=== PATIENT | male | born 1995 | race Caucasian/White ===

== ENCOUNTER 2017-03-06 18:10 | Emergency (ER) | payer BC, OTHER ==
[2017-03-06 18:23] VITALS: BP 155/99
--- NOTE | 2017-03-06 19:11 | EDM.PDOC ---
ED HPI GENERAL MEDICAL PROBLEM - General Chief Complaint: Lower Extremity Injury/Pain Stated Complaint: L ANKLE INJURY Time Seen by Provider: 03/06/17 19:00 Source of Information: Reports: Patient History Limitations: Reports: No Limitations - History of Present Illness INITIAL COMMENTS - FREE TEXT/NARRATIVE: 21-year-old male presents for evaluation treatment of injury to the left ankle. Injury occurred on Monday, March 01. Patient reports that he was running up a steep wall. He states he did not make it all the way and fell and inverted left ankle. He reports pain, swelling and bruising to the ankle since. He has been weightbearing by "hobbling around." Denies any numbness or tingling. Left Ankle Pain Score (Numeric/FACES): 4 - Related Data Allergies Allergy/AdvReac Type Severity Reaction Status Date / Time No Known Allergies Allergy Verified 03/06/17 18:19 Home Meds: Home Meds . [No Known Home Meds] 03/06/17 [History] Past Medical History - Past Health History Medical/Surgical History: Denies Medical/Surgical History Social & Family History - Tobacco Use Smoking Status *Q: Never Smoker Second Hand Smoke Exposure: No - Caffeine Use Caffeine Use: Reports: None - Recreational Drug Use Recreational Drug Use: No Review of Systems - Review of Systems Review Of Systems: See Below Musculoskeletal: Reports: Joint Pain (left ankle), Joint Swelling (left ankle) Skin: Reports: Bruising (left ankle) Neurological: Reports: Difficulty Walking (due to left ankle pain). Denies: Numbness, Tingling ED EXAM, GENERAL - Physical Exam Exam: See Below Exam Limited By: No Limitations General Appearance: Alert, WD/WN, No Apparent Distress Respiratory/Chest: No Respiratory Distress, Lungs Clear, Normal Breath Sounds Cardiovascular: Normal Peripheral Pulses, Regular Rate, Rhythm, No Murmur Peripheral Pulses: 2+: Posterior Tibial (L), Posterior Tibial (R), Dorsalis Pedis (L), Dorsalis Pedis (R) Extremities: Joint Swelling (left lateral ankle distal to the lateral malleolus) , Limited Range of Motion (pain with dorsiflexion, plantarflexion, inversion and eversion of the left ankle) Neurological: Alert, Oriented, Normal Cognition Skin Exam: Warm, Dry, Ecchymosis (left lateral foot and ankle) ED TRAUMA EXTREMITY PROCEDURES - Splinting Left Lower Extremity Splint Site: left foot and ankle Pre-Procedure NV Status: Normal Post-Procedure NV Status: Normal Splint Material: Other (orthoglass) Splint Design: Posterior Applied & Form Fitted By: Provider Provider Post-Splint Application NV Check: NV Status Normal, Good Position Complications: No Course - Vital Signs Last Recorded V/S: Last Vital Signs Temp 37.0 C 03/06/17 18:17 Pulse 75 03/06/17 18:17 Resp 18 03/06/17 18:17 BP 155/99 H 03/06/17 18:23 Pulse Ox 98 03/06/17 18:17 - Radiology Interpretation Free Text/Narrative:: xray of the left ankle shows no acute fractures or dislocations - Re-Assessments/Exams Free Text/Narrative Re-Assessment/Exam: 03/06/17 21:17 X-ray results reviewed with the patient. Posterior slab splint applied. I'm concerned that he has a grade 3 ankle sprain. This would require immobilization and crutches. [id number] Tylenol or Motrin seen for pain relief. Ice and elevate. Discharge instructions this documented. Departure - Departure Time of Disposition: 21:20 Disposition: Home, Self-Care 01 Condition: Fair Clinical Impression: Left ankle sprain - Discharge Information Instructions: Ankle Sprain, [id number] Referrals: PCP,None [Primary Care Provider] - Emy Álvarez PA-C [Physician [employer]] - Forms: ED Department Discharge Additional Instructions: Ice the ankle 3 to 4 times a day for 10-15 minutes. Use crutches that you have at home. [id number] Tylenol and Motrin dosing for pain relief. Follow-up with family medicine in 1 week. Recommend Gertrude Bruno or Geovany He. Call [phone] to schedule with one of them. Keep splint on at all times and keep covered when near water. Please return to the ER if your symptoms change or worsen.
--- NOTE | 2017-03-07 09:11 | CR ---
Left ankle: Three views of the left ankle were obtained. Comparison: No previous study. Soft tissue swelling is seen. Ankle mortise is symmetric. No fracture, dislocation or other bony abnormality is appreciated. Impression: 1. Soft tissue swelling. No acute bony abnormality is appreciated. Diagnostic code #2
== END 2017-03-06 21:45 | disposition home or self-care (01) ==
LOC: JD.ED 18:10
DX: S93.402A Sprain of unspecified ligament of left ankle, initial encounter (principal); W19.XXXA Unspecified fall, initial encounter
CPT/HCPCS: 29515; 73610-26-LT; 73610-LT; 99283-25; 99284-25

== ENCOUNTER 2024-02-20 16:19 | Emergency (ER) | payer OTHER ==
[2024-02-20 16:48] LABS: BASOPHILS PERCENT AUTO 0.3 % (0.0-1.0); EOSINOPHILS ABSOLUTE AUTO 0.1 K/mm3 (0.0-0.4); HEMATOCRIT 47.5 % (42.0-52.0); HEMOGLOBIN 16.1 gm/dl (14.0-18.0); IMMATURE GRAN ABSOLUTE AUTO 0.04 K/mm3 (0.00-0.05); IMMATURE GRAN PERCENT AUTO 0.3 % (0.0-0.4); LYMPHOCYTES ABSOLUTE AUTO 2.4 K/mm3 (1.0-4.8); LYMPHOCYTES PERCENT AUTO 20.4 % (24.0-44.0); MEAN CORPUSCULAR HEMOGLOBIN 29.5 pg (28.0-32.0); MEAN CORPUSCULAR HGB CONC 33.9 g/dl (32.0-36.0); MEAN PLATELET VOLUME 8.4 fl (9.4-12.4); MONOCYTES ABSOLUTE AUTO 0.9 K/mm3 (0.0-0.8); MONOCYTES PERCENT AUTO 7.3 % (0.0-8.0); NEUTROPHILS ABSOLUTE AUTO 8.3 K/mm3 (1.8-7.7); NEUTROPHILS PERCENT AUTO 70.7 % (41.0-71.0); PLATELET COUNT,PLT 318 K/mm3 (150-400); RED BLOOD CELL COUNT 5.46 M/mm3 (4.52-5.90)
[2024-02-20] MEDS: Iopamidol 612 MG/ML 100 ML Bottle IVPUSH ONE (16:51)
[2024-02-20] MEDS: Sodium Chloride 0.9% 10 ML Syringe FLUSH ONE (16:51)
[2024-02-20 17:13] LABS: A/G RATIO 1.2 (1-2); ALBUMIN 4.3 g/dl (3.4-5.0); ANION GAP 13.7 (5-15); BILIRUBIN TOTAL 0.6 mg/dL (0.2-1.0); CALCIUM 9.4 mg/dL (8.5-10.1); EST CRCL DRUG DOSING (CG) 136.13 mL/min; POTASSIUM,K 3.7 mEq/L (3.5-5.1)
[2024-02-20] MEDS: Sodium Chloride 0.9% 10 ML Syringe FLUSH PRN (17:45)
[2024-02-20] MEDS: Acetaminophen 325 MG Tab PO ONE (17:59)
[2024-02-20 18:07] VITALS: BP 161/96; PULSE 90
== END 2024-02-20 19:07 | disposition home or self-care (01) ==
LOC: JD.ED 16:19
DX: S22.010A Wedge compression fracture of first thoracic vertebra, initial encounter for closed fracture (principal); I10 Essential (primary) hypertension; E78.00 Pure hypercholesterolemia, unspecified; Z79.899 Other long term (current) drug therapy; W19.XXXA Unspecified fall, initial encounter
CPT/HCPCS: 36415; 70450; 70450-26; 71260; 71260-26; 72125; 72125-26; 74177; 74177-26; 80053; 83690; 85025; 99285; A9270-GY; J3490; Q9967

== ENCOUNTER 2025-02-08 16:08 | Emergency (ER) | payer OTHER ==
[2025-02-08 18:54] VITALS: BP 158/91; PULSE 84
== END 2025-02-08 19:00 | disposition home or self-care (01) ==
LOC: JD.ED 16:08
DX: S80.11XA Contusion of right lower leg, initial encounter (principal); I10 Essential (primary) hypertension; E78.00 Pure hypercholesterolemia, unspecified; Z79.899 Other long term (current) drug therapy; W18.30XA Fall on same level, unspecified, initial encounter
CPT/HCPCS: 73590-26-RT; 73590-RT; 73610-26-RT; 73610-RT; 93971-26-RT; 93971-RT; 99284